=== PATIENT | male | born 1980 | race Caucasian/White ===

== ENCOUNTER 2020-10-15 19:00 | Emergency (ER) | payer MEDICAID ==
[~2020-10-15] VITALS: Ht 172.7 cm; Wt 113.3 kg
[2020-10-15 19:44] LABS: BASOPHILS # (AUTO) 0.1 X10'3 (0-0.2); BASOPHILS % (AUTO) 0.6 % (0-1); EOSINOPHILS # (AUTO) 0.1 X10'3 (0-0.9); HEMATOCRIT 44.9 % (42.0-52.0); HEMOGLOBIN 14.6 g/dl (14.0-17.9); LYMPHOCYTES # (AUTO) 2.4 X10'3 (1.1-4.8); LYMPHOCYTES % (AUTO) 19.6 % (21-51); MEAN CORPUSCULAR HEMOGLOBIN 28.4 PG (27.0-31.0); MEAN CORPUSCULAR HGB CONC 32.5 g/dL (33.0-36.5); MEAN CORPUSCULAR VOLUME 87.5 FL (78-98); MEAN PLATELET VOLUME 8.6 FL (7.4-10.4); MONOCYTES # (AUTO) 1.6 X10'3 (0-0.9); MONOCYTES % (AUTO) 12.5 % (2-12); NEUTROPHILS # (AUTO) 8.3 X10'3 (1.8-7.7); NEUTROPHILS % (AUTO) 66.3 % (42-75); PLATELET COUNT 362 X10'3 (140-440); RED BLOOD COUNT 5.13 X10'6 (4.70-6.10); RED CELL DISTRIBUTION WIDTH 13.7 % (11.5-14.5); WHITE BLOOD COUNT 12.5 X10'3 (4.5-11.0)
[2020-10-15 19:58] LABS: ALANINE AMINOTRANSFERASE 44 U/L (12-78); ALBUMIN/GLOBULIN RATIO 1.1 (1.1-1.5); ALKALINE PHOSPHATASE 138 IU/L (46-116); ANION GAP 10 (8-16); ASPARTATE AMINO TRANSFERASE 22 U/L (10-37); BILIRUBIN,TOTAL 0.3 MG/DL (0.1-1.0); BLOOD UREA NITROGEN 12 MG/DL (7-18); BUN/CREATININE RATIO 10.3 (5.4-32.0); CALCIUM 8.7 MG/DL (8.5-10.1); CHLORIDE 106 MMOL/L (99-107); CREATININE 1.16 MG/DL (0.60-1.10); GLUCOSE 86 MG/DL (70-104); POTASSIUM 3.6 MMOL/L (3.5-5.1); SODIUM 142 MMOL/L (135-145); TOTAL CARBON DIOXIDE 25.7 MMOL/L (24-32); TOTAL PROTEIN 7.8 G/DL (6.4-8.2); eGFR 70 ML/MIN
[2020-10-15 23:02] LABS: PARTIAL THROMBOPLASTIN TIME 32 SECONDS (22-32)
[2020-10-15 23:05] LABS: D-DIMER < 0.19 MG/L FEU (0-0.50)
[2020-10-15] MEDS ORDERED: iohexol 350MG/ML 100ml bottle IV ONE (23:27)
[2020-10-16] MEDS ORDERED: enoxaparin 100mg/ml syringe SUBCUT ONE (00:50)
[2020-10-16] MEDS ORDERED: enoxaparin 30mg/0.3ml syringe SUBCUT ONE (00:55)
[2020-10-16] MEDS ORDERED: enoxaparin 80mg/0.8ml syringe SUBCUT ONE (00:55)
[2020-10-16] MEDS ORDERED: APIX5TAB3 PO (01:02)
[2020-10-16 01:27] VITALS: BP 128/76
== END 2020-10-16 01:31 | disposition home or self-care (01) ==
LOC: ER 19:01
DX: I82.401 Acute embolism and thrombosis of unspecified deep veins of right lower extremity (principal); Z20.822 Contact with and (suspected) exposure to COVID-19; Z79.01 Long term (current) use of anticoagulants
CPT/HCPCS: 36415; 71045; 71275; 80053; 85025; 85379; 85610; 85730; 87635; 93970; 96372; 99285; C9803; J1650; Q9967

== ENCOUNTER 2020-10-18 13:10 | Emergency (ER) | payer MEDICAID, OTHER ==
[~2020-10-18 13:10] MED LIST: APIX5TAB3 PO
== END 2020-10-18 19:24 | disposition left against medical advice (07) ==
LOC: ER 13:11
DX: M79.604 Pain in right leg (principal); Z53.21 Procedure and treatment not carried out due to patient leaving prior to being seen by health care provider

== ENCOUNTER 2020-10-19 20:08 | Emergency (ER) | payer MEDICAID, OTHER ==
[~2020-10-19] VITALS: Ht 172.7 cm; Wt 112.7 kg
[2020-10-19 20:20] VITALS: BP 144/99
== END 2020-10-19 20:35 | disposition home or self-care (01) ==
LOC: ER 20:09
DX: Z02.89 Encounter for other administrative examinations (principal); I82.401 Acute embolism and thrombosis of unspecified deep veins of right lower extremity; Z86.718 Personal history of other venous thrombosis and embolism; Z79.899 Other long term (current) drug therapy
CPT/HCPCS: 99281

== ENCOUNTER 2020-11-21 02:38 | Emergency (ER) | payer MEDICAID ==
[~2020-11-21] VITALS: Ht 172.7 cm; Wt 106.8 kg
--- NOTE | 2020-11-21 04:23 | NUR ---
PT NOTES THAT HE WAS ON ELIQUIS BUT IS NO LONGER TAKING IT BECAUSE HE LOST HIS MEDICATION
[2020-11-21] MEDS ORDERED: APIX5TAB3 PO (04:35)
[2020-11-21 05:09] VITALS: BP 109/63
== END 2020-11-21 05:07 | disposition home or self-care (01) ==
LOC: ER 02:39
DX: I82.401 Acute embolism and thrombosis of unspecified deep veins of right lower extremity (principal)
CPT/HCPCS: 99283